=== PATIENT | female | born 2000 | race Caucasian/White ===

== ENCOUNTER 2019-02-27 04:16 | Emergency (ER) | payer OTHER ==
[~2019-02-27] VITALS: Ht 165.1 cm; Wt 61.2 kg
[2019-02-27 04:23] VITALS: BP 117/79; Ht 165.1 cm; Wt 61.2 kg
== END 2019-02-27 05:30 | disposition home or self-care (01) ==
LOC: ED 04:16
DX: N39.0 Urinary tract infection, site not specified (principal)